=== PATIENT | female | born 2000 ===

== ENCOUNTER 2025-03-27 02:44 | Emergency (ER) | payer OTHER ==
[~2025-03-27] VITALS: Ht 177.8 cm; Wt 106.7 kg
[2025-03-27] MEDS ORDERED: LANTUS100 UNITS/ SUB-Q (03:12)
[2025-03-27] MEDS ORDERED: NOVOLOG100 UNIT/2 SUB-Q (03:13)
[2025-03-27] MEDS ORDERED: FLUOXETINE HCL40 MG PO (03:13)
[2025-03-27 03:36] LABS: BASOPHILS 0.6 % (0.1-1.2); EOSINOPHILS 1.2 % (0.7-5.8); LYMPHOCYTES 19.7 % (19.3-51.7); MCH 29.6 PG (25.6-32.2); MCHC 34.6 g/dL (32.2-35.5); MCV 85.7 fL (79.4-94.8); MONOCYTES 8.6 % (4.7-12.5); NEUTROPHILS 69.6 % (34.0-71.1); RBC 4.12 M/uL (3.93-5.22)
[2025-03-27 03:42] LABS: BLOOD/HGB, URINE NEGATIVE (Negative); KETONE, URINE NEGATIVE (Negative); LEUK ESTERASE, URINE NEGATIVE (negative); NITRITE, URINE NEGATIVE (negative)
[2025-03-27] MEDS ORDERED: METOCLOPRAMIDE HCL 10 MG TAB PO ONE (03:45)
[2025-03-27 03:50] LABS: ALT (SGPT) 25.0 U/L (14-59); AST (SGOT) 23.0 U/L (15-37); GLOMERULAR FILTRATION RATE,EST 127.0 mL/min (>60); PROTEIN, TOTAL 6.8 g/dL (6.4-8.2); UREA NITROGEN 8.0 mg/dL (7-18)
[2025-03-27 04:20] VITALS: BP 127/84
== END 2025-03-27 04:23 | disposition home or self-care (01) ==
LOC: ED 02:44
PROVIDERS: Internal Medicine
DX: O24.013 Pre-existing type 1 diabetes mellitus, in pregnancy, third trimester (principal); E10.649 Type 1 diabetes mellitus with hypoglycemia without coma; Z3A.33 33 weeks gestation of pregnancy
CPT/HCPCS: 36415; 80053; 81003; 85025; 99284